=== PATIENT | female | born 1940 | race Caucasian/White ===

== ENCOUNTER → 2023-11-18 07:38 | Outpatient (REF) | payer MEDICARE, BC, SELFPAY | LOC: WDC 07:38 | PROVIDERS: ATTENDING PHYSICIAN Surgery; FAMILY PHYSICIAN Family Medicine | DX: R92.8 Other abnormal and inconclusive findings on diagnostic imaging of breast (principal) | CPT/HCPCS: 76642 ==

== ENCOUNTER → 2023-11-26 08:40 | Outpatient (REF) | payer MEDICARE, BC, SELFPAY | LOC: WDC 08:40 | PROVIDERS: ATTENDING PHYSICIAN Surgery; FAMILY PHYSICIAN Family Medicine | DX: R92.8 Other abnormal and inconclusive findings on diagnostic imaging of breast (principal); N63.10 Unspecified lump in the right breast, unspecified quadrant | CPT/HCPCS: 88305; 19083; 88341; 88342; 88360; A4648 ==

== ENCOUNTER → 2024-01-04 08:20 | Outpatient (REF) | payer MEDICARE, BC, SELFPAY ==
[2024-01-04 10:36] LABS: ALT (SGPT) 20 U/L (0-35); AST (SGOT) 27 U/L (14-36); Albumin 4.7 g/dl (3.5-5.0); Alkaline Phosphatase 102 U/L (38-126); Blood Urea Nitrogen 16 mg/dl (7-17); Calcium 9.8 mg/dl (8.4-10.2); Carbon Dioxide 25 mmol/L (22-30); Chloride 93 mmol/L (98-107); Glucose 101 mg/dl (70-99); Potassium 4.7 mmol/L (3.5-5.1); Sodium 124 mmol/L (135-145); eGFR > 60.00
== END ==
LOC: HWLAB 08:20
PROVIDERS: ATTENDING PHYSICIAN Surgery; FAMILY PHYSICIAN Family Medicine
DX: Z01.812 Encounter for preprocedural laboratory examination (principal); R89.9 Unspecified abnormal finding in specimens from other organs, systems and tissues; E83.52 Hypercalcemia
CPT/HCPCS: 36415; 80053

== ENCOUNTER → 2024-01-10 09:15 | Outpatient (REF) | payer MEDICARE, BC, SELFPAY | LOC: WDC 09:15 | PROVIDERS: ATTENDING PHYSICIAN Surgery | DX: N60.89 Other benign mammary dysplasias of unspecified breast (principal); N63.12 Unspecified lump in the right breast, upper inner quadrant | CPT/HCPCS: 19285; 77065; A4648 ==

== ENCOUNTER → 2024-01-12 07:23 | Outpatient (REF) | payer MEDICARE, BC, SELFPAY ==
[2024-01-12 10:33] LABS: Osmolality Urine 728 mOsm/kg (300-900)
[2024-01-12 10:43] LABS: Blood Urea Nitrogen 17 mg/dl (7-17); Calcium 9.9 mg/dl (8.4-10.2); Carbon Dioxide 26 mmol/L (22-30); Potassium 4.6 mmol/L (3.5-5.1); eGFR > 60.00
[2024-01-12 10:45] LABS: Chloride 98 mmol/L (98-107); Glucose 108 mg/dl (70-99); Sodium 129 mmol/L (135-145); Uric Acid 2.6 mg/dl (2.5-6.2)
[2024-01-15 01:48] LABS: Albumin 4.42 g/dL (3.75-5.01); Alpha 1 Globulin 0.26 g/dL (0.19-0.46); Alpha 2 Globulin 0.65 g/dL (0.48-1.05); Free Kappa Light Chains,Quant 13.96 mg/L (3.30-19.40); Free Lambda Light Chains,Quant 13.87 mg/L (5.71-26.30); IgA 55 mg/dL (68-408); IgG 439 mg/dL (768-1632); IgM 53 mg/dL (35-263); Immunofixation Electrophoresis IFE Done; Kappa/Lambda Fr Light Ratio 1.01 (0.26-1.65); Total Protein-Electrophoresis 6.6 g/dL (6.3-8.2)
[2024-01-15 08:56] LABS: Intact PTH 47.4 pg/ml (13.6-85.8)
[2024-01-18 22:59] LABS: 24 Hour Urine Total Volume Random mL; Urine Collection Length Random hr; Urine Free Kappa Light Chains 23.87 mg/L (0.00-32.90); Urine Free Lambda Light Chains 3.35 mg/L (0.00-3.79)
== END ==
LOC: HWLAB 07:23
PROVIDERS: ATTENDING PHYSICIAN Specialist; FAMILY PHYSICIAN Family Medicine; REFERRING PHYSICIAN Surgery
DX: E87.1 Hypo-osmolality and hyponatremia (principal)
CPT/HCPCS: 36415; 80048; 82784; 83521; 83935; 83970; 84155; 84156; 84165; 84550; 86334; 86335

== ENCOUNTER → 2024-01-19 07:38 | Outpatient (REF) | payer MEDICARE, BC, SELFPAY ==
[2024-01-19 09:56] LABS: Blood Urea Nitrogen 22 mg/dl (7-17); Carbon Dioxide 26 mmol/L (22-30); Chloride 98 mmol/L (98-107); Glucose 97 mg/dl (70-99); Potassium 4.5 mmol/L (3.5-5.1); Sodium 133 mmol/L (135-145); eGFR > 60.00
== END ==
LOC: HWLAB 07:38
PROVIDERS: ATTENDING PHYSICIAN Specialist; FAMILY PHYSICIAN Family Medicine
DX: E87.1 Hypo-osmolality and hyponatremia (principal); I10 Essential (primary) hypertension
CPT/HCPCS: 36415; 80048

== ENCOUNTER 2024-01-25 06:28 | Day surgery (SDC) | payer MEDICARE, BC, SELFPAY ==
[2023-12-29 10:20] LABS: Hematocrit 43.6 % (37.0-47.0); Hemoglobin 14.8 g/dL (12.0-16.0); Mean Corp Hgb Conc. 33.9 g/dL (33.0-37.0); Mean Corpuscular Hgb 31.3 pg (27.0-31.0); Mean Corpuscular Volume 92.2 fL (81.0-99.0); Mean Platelet Volume 10.3 fL (7.4-10.4); Platelet Count 410 10^3/uL (130-400); Red Blood Cell Count 4.73 10^6/uL (4.20-5.40); Red Cell Dist. Width 12.4 % (11.5-14.5); White Blood Cell Count 11.7 10^3/uL (4.8-10.8)
[2023-12-29 11:01] LABS: ALT (SGPT) 31 U/L (0-35); AST (SGOT) 30 U/L (14-36); Albumin 4.7 g/dl (3.5-5.0); Alkaline Phosphatase 104 U/L (38-126); Blood Urea Nitrogen 23 mg/dl (7-17); Calcium 10.6 mg/dl (8.4-10.2); Carbon Dioxide 25 mmol/L (22-30); Chloride 97 mmol/L (98-107); Glucose 94 mg/dl (70-99); Potassium 4.7 mmol/L (3.5-5.1); Sodium 134 mmol/L (135-145); Total Bilirubin 0.7 mg/dl (0.2-1.3); eGFR > 60.00
[2023-12-29 12:46] LABS: Prealbumin (Transthyretin) 34.7 mg/dl (17.6-36.0)
[2023-12-29 12:59] LABS: Vitamin D, 25-OH*** 73.5 ng/mL (30-80)
--- NOTE | 2024-01-04 15:59 | PTCARENOTE ---
Ankit in Dr He's office notified of Na+ of 124 collected on 01/04/24.
--- NOTE | 2024-01-04 16:10 | PTCARENOTE ---
Abnormal ECG reviewed by Dr. Conde, no further instructions at this time.
--- NOTE | 2024-01-21 15:46 | PTCARENOTE ---
Dr. Martinez notified of recent low Na+ levels, no further orders/actions.
[2024-01-25] MEDS: NORMOSOL-R 1000 IV (07:59)
== END 2024-01-25 12:22 | disposition home or self-care (01) ==
LOC: SDS 06:28
PROVIDERS: ATTENDING PHYSICIAN Surgery; FAMILY PHYSICIAN Family Medicine
DX: N60.91 Unspecified benign mammary dysplasia of right breast (principal); D24.1 Benign neoplasm of right breast
CPT/HCPCS: 19301; 88307; 36415; 76098; 80053; 82306; 84134; 85027; 88341; 88342; 88360; 93005; A4648

== ENCOUNTER → 2024-02-02 09:19 | Outpatient (REF) | payer MEDICARE, BC, SELFPAY ==
[2024-02-02 13:02] LABS: Blood Urea Nitrogen 15 mg/dl (7-17); Carbon Dioxide 26 mmol/L (22-30); Chloride 97 mmol/L (98-107); Glucose 104 mg/dl (70-99); Sodium 131 mmol/L (135-145); eGFR > 60.00
[2024-02-02 15:05] LABS: Potassium 4.5 mmol/L (3.5-5.1)
== END ==
LOC: HWLAB 09:19
PROVIDERS: ATTENDING PHYSICIAN Specialist; FAMILY PHYSICIAN Family Medicine
DX: R93.1 Abnormal findings on diagnostic imaging of heart and coronary circulation (principal); E03.9 Hypothyroidism, unspecified; E78.00 Pure hypercholesterolemia, unspecified
CPT/HCPCS: 36415; 80048

== ENCOUNTER → 2024-02-25 07:54 | Outpatient (REF) | payer MEDICARE, BC, SELFPAY ==
[2024-02-25 12:27] LABS: Blood Urea Nitrogen 20 mg/dl (7-17); Carbon Dioxide 26 mmol/L (22-30); Chloride 102 mmol/L (98-107); Glucose 99 mg/dl (70-99); Potassium 4.3 mmol/L (3.5-5.1); Sodium 134 mmol/L (135-145); eGFR > 60.00
[2024-02-25 12:28] LABS: TSH Reflex To Free T4 0.51 uIU/ml (0.47-4.68)
== END ==
LOC: HWLAB 07:54
PROVIDERS: ATTENDING PHYSICIAN Specialist; FAMILY PHYSICIAN Family Medicine; REFERRING PHYSICIAN Physical Medicine & Rehabilitation
DX: I10 Essential (primary) hypertension (principal); E78.00 Pure hypercholesterolemia, unspecified; E87.1 Hypo-osmolality and hyponatremia
CPT/HCPCS: 36415; 80048; 84443

== ENCOUNTER → 2024-05-24 07:29 | Outpatient (REF) | payer MEDICARE, BC, SELFPAY | LOC: HWRAD 07:29 | PROVIDERS: ATTENDING PHYSICIAN Physical Medicine & Rehabilitation; FAMILY PHYSICIAN Family Medicine | DX: Z78.0 Asymptomatic menopausal state (principal) | CPT/HCPCS: 77080 ==

== ENCOUNTER → 2024-06-07 07:39 | Outpatient (REF) | payer MEDICARE, BC, SELFPAY ==
[2024-06-07 09:47] LABS: Osmolality Urine 538 mOsm/kg (300-900)
[2024-06-07 10:03] LABS: NT-proBNP 59.5 pg/ml
[2024-06-07 11:23] LABS: Blood Urea Nitrogen 16 mg/dl (7-17); Calcium 10.1 mg/dl (8.4-10.2); Carbon Dioxide 27 mmol/L (22-30); Chloride 98 mmol/L (98-107); Glucose 98 mg/dl (70-99); Potassium 4.4 mmol/L (3.5-5.1); Sodium 132 mmol/L (135-145); Uric Acid 2.5 mg/dl (2.5-6.2); eGFR > 60.00
== END ==
LOC: HWLAB 07:39
PROVIDERS: ATTENDING PHYSICIAN Specialist; FAMILY PHYSICIAN Family Medicine
DX: I10 Essential (primary) hypertension (principal); E03.9 Hypothyroidism, unspecified; E78.00 Pure hypercholesterolemia, unspecified
CPT/HCPCS: 36415; 80048; 83880; 83935; 84550

== ENCOUNTER → 2024-07-25 08:00 | Outpatient (REF) | payer MEDICARE, BC, SELFPAY ==
[2024-07-25 10:45] LABS: Blood Urea Nitrogen 16 mg/dl (7-17); Calcium 9.6 mg/dl (8.4-10.2); Carbon Dioxide 27 mmol/L (22-30); Chloride 98 mmol/L (98-107); Glucose 102 mg/dl (70-99); Potassium 4.5 mmol/L (3.5-5.1); Sodium 136 mmol/L (135-145); eGFR > 60.00
== END ==
LOC: HWLAB 08:00
PROVIDERS: ATTENDING PHYSICIAN Specialist; FAMILY PHYSICIAN Family Medicine
DX: E87.1 Hypo-osmolality and hyponatremia (principal)
CPT/HCPCS: 36415; 80048

== ENCOUNTER → 2024-10-24 07:42 | Outpatient (REF) | payer MEDICARE, BC, SELFPAY ==
[2024-10-24 10:22] LABS: % Basophils 0.5 % (0-2); % Eosinophils 1.3 % (0-6); % Immature Granulocytes 0.3 % (0-0.5); % Lymphocytes 19.7 % (20.5-51.1); % Monocytes 4.4 % (1.7-9.3); % Neutrophils 73.8 % (42.2-75.2); Absolute Eosinophils 0.1 10^3/uL (0-0.7); Absolute Lymphocytes 1.5 10^3/uL (1.2-3.4); Absolute Monocytes 0.3 10^3/uL (0.1-0.6); Absolute Neutrophils 5.5 10^3/uL (1.4-6.5); Hematocrit 41.9 % (37.0-47.0); Hemoglobin 13.7 g/dL (12.0-16.0); Mean Corp Hgb Conc. 32.7 g/dL (33.0-37.0); Mean Corpuscular Hgb 31.4 pg (27.0-31.0); Mean Corpuscular Volume 96.1 fL (81.0-99.0); Mean Platelet Volume 10.1 fL (7.4-10.4); Nucleated Red Blood Cells % 0 %; Platelet Count 331 10^3/uL (130-400); Red Blood Cell Count 4.36 10^6/uL (4.20-5.40); Red Cell Dist. Width 12.7 % (11.5-14.5); White Blood Cell Count 7.5 10^3/uL (4.8-10.8)
[2024-10-24 10:50] LABS: ALT (SGPT) 19 U/L (0-35); AST (SGOT) 25 U/L (14-36); Albumin 4.3 g/dl (3.5-5.0); Alkaline Phosphatase 97 U/L (38-126); Blood Urea Nitrogen 14 mg/dl (7-17); Calcium 9.6 mg/dl (8.4-10.2); Carbon Dioxide 29 mmol/L (22-30); Chloride 100 mmol/L (98-107); Glucose 103 mg/dl (70-99); Potassium 4.1 mmol/L (3.5-5.1); Sodium 137 mmol/L (135-145); Total Bilirubin 0.5 mg/dl (0.2-1.3); Total Protein 6.4 g/dl (6.3-8.2); eGFR > 60.00
[2024-10-24 10:58] LABS: Vitamin D, 25-OH*** 40.9 ng/mL (30-80)
[2024-10-24 11:01] LABS: Urine Albumin Negative (Neg - Trace); Urine Bilirubin Negative (Negative); Urine Character Clear (Clear); Urine Color Yellow; Urine Glucose Negative (Negative); Urine Ketone Negative (Negative); Urine Leukocyte Negative (Negative); Urine Nitrite Negative (Negative); Urine Occult Blood Negative (Negative); Urine Urobilinogen Negative (Neg - 1+)
== END ==
LOC: HWLAB 07:42
PROVIDERS: ATTENDING PHYSICIAN Physical Medicine & Rehabilitation; FAMILY PHYSICIAN Family Medicine
DX: I15.8 Other secondary hypertension (principal); I10 Essential (primary) hypertension; E78.00 Pure hypercholesterolemia, unspecified; E03.9 Hypothyroidism, unspecified; M85.80 Other specified disorders of bone density and structure, unspecified site; M81.0 Age-related osteoporosis without current pathological fracture; E87.1 Hypo-osmolality and hyponatremia; E83.52 Hypercalcemia
CPT/HCPCS: 36415; 80053; 81003; 82306; 83970; 85025

== ENCOUNTER → 2024-12-05 07:59 | Outpatient (REF) | payer MEDICARE, BC, SELFPAY ==
[2024-12-05 10:05] LABS: Albumin 4.1 g/dl (3.5-5.0); Blood Urea Nitrogen 17 mg/dl (7-17); Calcium 9.6 mg/dl (8.4-10.2); Carbon Dioxide 28 mmol/L (22-30); Chloride 99 mmol/L (98-107); Glucose 97 mg/dl (70-99); Potassium 4.3 mmol/L (3.5-5.1); Sodium 133 mmol/L (135-145); eGFR > 60.00
[2024-12-05 10:48] LABS: Microalbumin, Random Urine <0.6 mg/dl (0.6-1.7)
== END ==
LOC: HWLAB 07:59
PROVIDERS: ATTENDING PHYSICIAN Specialist; FAMILY PHYSICIAN Family Medicine
DX: E87.1 Hypo-osmolality and hyponatremia (principal)
CPT/HCPCS: 36415; 80069; 82043; 82570

== ENCOUNTER → 2025-01-02 10:37 | Outpatient (REF) | payer MEDICARE, BC, SELFPAY | LOC: WDC 10:37 | PROVIDERS: ATTENDING PHYSICIAN Surgery; FAMILY PHYSICIAN Family Medicine | DX: R92.30 Dense breasts, unspecified (principal) | CPT/HCPCS: 76641 ==

== ENCOUNTER → 2025-03-08 08:12 | Outpatient (REF) | payer MEDICARE, BC, SELFPAY ==
[2025-03-08 09:48] LABS: Osmolality Urine 827 mOsm/kg (300-900)
[2025-03-08 10:21] LABS: Blood Urea Nitrogen 19 mg/dl (7-17); Calcium 9.5 mg/dl (8.4-10.2); Carbon Dioxide 26 mmol/L (22-30); Chloride 107 mmol/L (98-107); Glucose 89 mg/dl (70-99); HDL Cholesterol 77 mg/dl; LDL Cholesterol, Calculated 123 mg/dl; Potassium 4.7 mmol/L (3.5-5.1); Sodium 138 mmol/L (135-145); Total Cholesterol 218 mg/dl (50-199); Triglyceride 91 mg/dl (10-149); Very Low Density Lipoprotein 18 mg/dl (0-30); eGFR > 60.00
== END ==
LOC: HWLAB 08:12
PROVIDERS: ATTENDING PHYSICIAN Specialist; FAMILY PHYSICIAN Family Medicine; REFERRING PHYSICIAN Physical Medicine & Rehabilitation
DX: E87.1 Hypo-osmolality and hyponatremia (principal); E78.00 Pure hypercholesterolemia, unspecified
CPT/HCPCS: 36415; 80048; 80061; 83935